=== PATIENT | female | born 1965 | race Caucasian/White ===

== ENCOUNTER 2020-09-24 15:39 | Emergency (ER) | payer OTHER ==
[2020-09-24 16:53] LABS: HEMOGLOBIN 12.6 gm/dl (12.3-15.3); RED BLOOD COUNT 4.15 M/UL (4.00-5.10); WHITE BLOOD COUNT 12.7 K/UL (4.5-11.0)
[2020-09-24 17:22] LABS: BUN/CREATININE RATIO 10 (0-10)
== END 2020-09-24 20:10 | disposition short-term general hospital (02) ==
LOC: ER1 15:39
PROVIDERS: Emergency Medicine
DX: N73.9 Female pelvic inflammatory disease, unspecified (principal); K57.20 Diverticulitis of large intestine with perforation and abscess without bleeding; E87.6 Hypokalemia; Z90.710 Acquired absence of both cervix and uterus
CPT/HCPCS: 80053; 81001; 83605; 83690; 85025; 87040; 96374; 96375; 99285; J1170; J2405; J2543; Q9967

== ENCOUNTER 2020-10-27 08:48 | Observation (INO) | payer OTHER ==
[~2020-10-27] VITALS: Ht 165.1 cm; Wt 89.4 kg
[2020-10-27 09:35] LABS: HEMOGLOBIN 13.5 gm/dl (12.3-15.3); RED BLOOD COUNT 4.46 M/UL (4.00-5.10)
[2020-10-27 10:01] LABS: BUN/CREATININE RATIO 12 (0-10)
[2020-10-27] MEDS ORDERED: ACETAMINOPHEN500 MG PO (17:49)
[2020-10-27] MEDS ORDERED: ROBAXIN 750 MG750 MG PO (17:49)
[2020-10-27] MEDS ORDERED: OXYCODONE HCL5 MG PO (17:49)
[2020-10-27] MEDS ORDERED: FAMOTIDINE20 MG PO (17:50)
[2020-10-27] MEDS ORDERED: ATORVASTATIN CA10 MG PO (17:50)
[2020-10-27] MEDS ORDERED: CETIRIZINE HCL10 MG PO (17:50)
[2020-10-27] MEDS ORDERED: FOLIC ACID 1 MG1 MG PO (17:51)
[2020-10-28 03:14] LABS: WHITE BLOOD COUNT 8.3 K/UL (4.5-11.0)
[2020-10-28 03:25] LABS: HEMOGLOBIN 11.1 gm/dl (12.3-15.3); RED BLOOD COUNT 3.78 M/UL (4.00-5.10)
[2020-10-28 03:40] LABS: BUN/CREATININE RATIO 8 (0-10)
== END 2020-10-28 18:49 ==
LOC: ER1 08:48 → CDU 19:59 → M/S 19:59
PROVIDERS: Physician Assistant Medical; ADMIT Internal Medicine
DX: R11.2 Nausea with vomiting, unspecified (principal); J30.2 Other seasonal allergic rhinitis; G89.29 Other chronic pain; M54.5 Low back pain; E78.5 Hyperlipidemia, unspecified; Z20.822 Contact with and (suspected) exposure to COVID-19; Z87.19 Personal history of other diseases of the digestive system; Z90.49 Acquired absence of other specified parts of digestive tract; Z79.899 Other long term (current) drug therapy; Z88.5 Allergy status to narcotic agent
CPT/HCPCS: 36415; 70450; 71045; 80053; 80307; 81001; 83605; 83690; 83735; 85025; 85610; 86140; 87040; 87449; 96374; 96375; 96376; 99285; G0378; J1170; J2405; J2543; J2550; J2765; J3360; J7030; Q9967; U0002